=== PATIENT | male | born 1990 | race Caucasian/White ===

== ENCOUNTER → 2024-02-26 | Outpatient (CLI) | payer BC, SELFPAY ==
[2024-02-26 13:03] LABS: Post Vasectomy Sperm Presence No Spermatozoa Seen (No Sperm)
== END | disposition home or self-care (01) ==
LOC: SLDO 12:19
PROVIDERS: Referring Provider Physician Assistant; Visit Provider Physician Assistant
DX: Z30.2 Encounter for sterilization (principal)
CPT/HCPCS: 89321